=== PATIENT | male | born 1960 | race Caucasian/White ===

== ENCOUNTER 2020-01-12 20:43 | Emergency (ER) | payer OTHER ==
[~2020-01-12] VITALS: Ht 172.7 cm; Wt 59.4 kg
[2020-01-12 21:13] VITALS: BP 134/89
== END 2020-01-12 21:13 ==
LOC: M.ERS 20:43 → EDBD 20:43 → M.ERS 21:13
DX: K06.8 Other specified disorders of gingiva and edentulous alveolar ridge (principal); Z00.00 Encounter for general adult medical examination without abnormal findings